=== PATIENT | male | born 1995 | race Caucasian/White ===

== ENCOUNTER 2019-08-04 14:37 | Emergency (ER) | payer SELFPAY ==
[2019-08-04 14:43] VITALS: TEMP 98
[2019-08-04] MEDS ORDERED: KETOROLAC 30 MG/ML 1 ML VIAL IVP STA (15:36)
[2019-08-04] MEDS ORDERED: SODIUM CHLORIDE 0.9% 1,000 ML IV STA (15:36)
[2019-08-04 16:25] LABS: Basophils # (A) 0.1 k/uL (0-0.2); Basophils % (A) 2 %; Eosinophils # (A) 0.1 k/uL (0-0.7); Eosinophils % (A) 2 %; HCT 46.6 % (39.0-53.0); HGB 15.7 gm/dL (13.0-17.5); Lymphocytes # (A) 1.6 k/uL (1.0-4.8); Lymphocytes % (A) 25 %; MCHC 33.8 g/dL (31.0-37.0); MCV 85.9 fL (80.0-100.0); Mean Platelet Volume 6.7; Monocytes # (A) 0.4 k/uL (0-1.0); Monocytes % (A) 6 %; Neutrophils # (A) 4.1 k/uL (1.3-7.7); Neutrophils % (A) 63 %; Platelet Count 334 k/uL (150-450); RBC 5.42 m/uL (4.30-5.90); RDW 12.2 % (11.5-15.5); WBC 6.5 k/uL (3.8-10.6)
--- NOTE | 2019-08-04 16:30 | XR ---
EXAMINATION TYPE: XR chest 2V DATE OF EXAM: 08/04/2019 COMPARISON: None HISTORY: 24-year-old male with cough and pain TECHNIQUE: PA and lateral views FINDINGS: The cardiomediastinal silhouette, aorta, and pulmonary vasculature are within normal limits. There ma y be some mild central peribronchial cuffing. Otherwise, lungs and pleural spaces are clear. IMPRESSION: Some mild central peribronchial cuffing could reflect bronchitis or asthma. Otherwise, no acute cardi opulmonary process.
[2019-08-04 16:32] LABS: ALT 63 U/L (21-72); AST 31 U/L (17-59); African American GFR (CKD) >90 (>60 ml/min/1.73 sqM); Albumin 4.5 g/dL (3.5-5.0); Alkaline Phosphatase 89 U/L (38-126); Anion Gap 9 mmol/L; Blood Urea Nitrogen 14 mg/dL (9-20); Calcium 9.7 mg/dL (8.4-10.2); Carbon Dioxide 25 mmol/L (22-30); Chloride 106 mmol/L (98-107); Glucose 96 mg/dL (74-99); Non-African American GFR(CKD) >90 (>60 ml/min/1.73 sqM); Potassium 4.3 mmol/L (3.5-5.1); Sodium 140 mmol/L (137-145); Total Bilirubin 0.6 mg/dL (0.2-1.3); Total Protein 7.5 g/dL (6.3-8.2)
[2019-08-04 16:36] LABS: D-Dimer <0.17 mg/L FEU (<0.60); INR 0.9 (<1.2); Partial Thromboplastin Time 28.3 sec (22.0-30.0); Prothrombin Time 9.7 sec (9.0-12.0)
--- NOTE | 2019-08-04 17:26 | ED ---
General Adult HPI - General Chief complaint: Shortness of Breath Stated complaint: SOB Time Seen by Provider: 08/04/19 14:40 Source: patient Mode of arrival: ambulatory Limitations: no limitations - History of Present Illness Initial comments: The patient is a 24-year-old male with no past medical history presents emergency Department with reported chest pain. He states that last week he did have an upper respiratory infection which to have a nonproductive cough, nausea and vomiting. States that since his symptoms have resolved however he now suff ers from a pleuritic chest pain over the past 3 days. He states that it is left sided. Denies ripping or tearing sensation to his back. Denies any chest wall trauma. No unilateral numbness or weakness. Denies any fevers or chills. No history of DVT or PE. No lower extremity swelling. He has not taken anything at home for his symptoms. There are no other alleviating, precipitating or modifying factors - Related Data Previous Rx's Medication Instructions Recorded Albuterol Sulfate [Proair Hfa] 1 - 2 puff INHALATION Q4HR PRN #1 08/04/19 inhaler Naproxen [Naprosyn] 500 mg PO Q12HR PRN #20 tab 08/04/19 Allergies Allergy/AdvReac Type Severity Reaction Status Date / Time No Known Allergies Allergy Verified 08/04/19 14:40 Review of Systems ROS Statement: Those systems with pertinent positive or pertinent negative responses have been documented in the HPI. ROS Other: All systems not noted in ROS Statement are negative. Past Medical History Past Medical History: No Reported History History of Any Multi-Drug Resistant Organisms: None Reported Past Surgical History: No Surgical Hx Reported Past Psychological History: No Psychological Hx Reported Smoking Status: Never smoker Past Alcohol Use History: None Reported Past Drug Use History: None Reported General Exam Limitations: no limitations General appearance: alert, in no apparent distress Head exam: Present: atraumatic, normocephalic, normal inspection Eye exam: Present: normal appearance, PERRL, EOMI. Absent: scleral icterus, conjunctival injection, periorbital swelling ENT exam: Present: normal exam, mucous membranes moist Neck exam: Present: normal inspection. Absent: tenderness, meningismus, lymphadenopathy Respiratory exam: Present: normal lung sounds bilaterally. Absent: respiratory distress, wheezes, rales, rhonchi, stridor Cardiovascular Exam: Present: regular rate, normal rhythm, normal heart sounds. Absent: systolic murmur, diastolic murmur, rubs, gallop, clicks GI/Abdominal exam: Present: soft, normal bowel sounds. Absent: distended, tenderness, guarding, rebound, rigid Extremities exam: Present: normal inspection, full ROM, normal capillary refill. Absent: tenderness, pedal edema, joint swelling, calf tenderness Back exam: Present: normal inspection Neurological exam: Present: alert, oriented X3, CN II-XII intact Psychiatric exam: Present: normal affect, normal mood Skin exam: Present: warm, dry, intact, normal color. Absent: rash Course Vital Signs 08/04/19 08/04/19 14:40 17:45 Temperature 98 F Pulse Rate 104 H 96 Respiratory 22 18 Rate Blood Pressure 144/80 139/63 O2 Sat by Pulse 98 99 Oximetry EKG Findings - EKG Comments: EKG Findings:: EKG demonstrates normal sinus rhythm with ventricular rate of 82. PA interval 156. QRS 86. QTC of 425. There are no acute ST segment elevations or depressions concerning for ischemic changes. There is an inverted T-wave in lead 3. Medical Decision Making - Medical Decision Making Upon arrival the patient is placed into room 8 and a thorough history of physical exam was performed. A 12-lead EKG was performed. I did provide the patient with 30 mg of IV Toradol. Laboratory studies were performed she went for chest x-ray. CBC, CMP are unremarkable. Troponin is negative. D-dimer is negative. Chest x-ray demonstrates some mild peribronchial cuffing. I discussed results with the patient. He reports he is pain-free with the Toradol administration. I did discuss diagnosis, differential and treatment options. I did recommend the patient follow up with primary care doctor in 2-4 days. I did recommend a full cardiac workup to include an echo. I will provide the patient with a prescription for an albuterol inhaler and Naprosyn. The patient has any new or worsening symptoms he should return to the emergency room. The patient agreed and was discharged home in stable condition - Lab Data Result diagrams: 08/04/19 15:55 08/04/19 15:55 Lab Results 08/04/19 08/04/19 08/04/19 Range/Units 15:55 15:55 15:55 WBC 6.5 (3.8-10.6) k/uL RBC 5.42 (4.30-5.90) m/uL Hgb 15.7 (13.0-17.5) gm/dL Hct 46.6 (39.0-53.0) % MCV 85.9 (80.0-100.0) fL MCH 29.0 (25.0-35.0) pg MCHC 33.8 (31.0-37.0) g/dL RDW 12.2 (11.5-15.5) % Plt Count 334 (150-450) k/uL Neutrophils % 63 % Lymphocytes % 25 % Monocytes % 6 % Eosinophils % 2 % Basophils % 2 % Neutrophils # 4.1 (1.3-7.7) k/uL Lymphocytes # 1.6 (1.0-4.8) k/uL Monocytes # 0.4 (0-1.0) k/uL Eosinophils # 0.1 (0-0.7) k/uL Basophils # 0.1 (0-0.2) k/uL PT 9.7 (9.0-12.0) sec INR 0.9 (<1.2) APTT 28.3 (22.0-30.0) sec D-Dimer <0.17 (<0.60) mg/L FEU Sodium 140 (137-145) mmol/L Potassium 4.3 (3.5-5.1) mmol/L Chloride 106 (98-107) mmol/L Carbon Dioxide 25 (22-30) mmol/L Anion Gap 9 mmol/L BUN 14 (9-20) mg/dL Creatinine 0.72 (0.66-1.25) mg/dL Est GFR (CKD-EPI)AfAm >90 (>60 ml/min/1.73 sqM) Est GFR (CKD-EPI)NonAf >90 (>60 ml/min/1.73 sqM) Glucose 96 (74-99) mg/dL Calcium 9.7 (8.4-10.2) mg/dL Total Bilirubin 0.6 (0.2-1.3) mg/dL AST 31 (17-59) U/L ALT 63 (21-72) U/L Alkaline Phosphatase 89 (38-126) U/L Troponin I (0.000-0.034) ng/mL Total Protein 7.5 (6.3-8.2) g/dL Albumin 4.5 (3.5-5.0) g/dL Lipase 52 (23-300) U/L TSH 1.780 (0.465-4.680) mIU/L 08/04/19 Range/Units 15:55 WBC (3.8-10.6) k/uL RBC (4.30-5.90) m/uL Hgb (13.0-17.5) gm/dL Hct (39.0-53.0) % MCV (80.0-100.0) fL MCH (25.0-35.0) pg MCHC (31.0-37.0) g/dL RDW (11.5-15.5) % Plt Count (150-450) k/uL Neutrophils % % Lymphocytes % % Monocytes % % Eosinophils % % Basophils % % Neutrophils # (1.3-7.7) k/uL Lymphocytes # (1.0-4.8) k/uL Monocytes # (0-1.0) k/uL Eosinophils # (0-0.7) k/uL Basophils # (0-0.2) k/uL PT (9.0-12.0) sec INR (<1.2) APTT (22.0-30.0) sec D-Dimer (<0.60) mg/L FEU Sodium (137-145) mmol/L Potassium (3.5-5.1) mmol/L Chloride (98-107) mmol/L Carbon Dioxide (22-30) mmol/L Anion Gap mmol/L BUN (9-20) mg/dL Creatinine (0.66-1.25) mg/dL Est GFR (CKD-EPI)AfAm (>60 ml/min/1.73 sqM) Est GFR (CKD-EPI)NonAf (>60 ml/min/1.73 sqM) Glucose (74-99) mg/dL Calcium (8.4-10.2) mg/dL Total Bilirubin (0.2-1.3) mg/dL AST (17-59) U/L ALT (21-72) U/L Alkaline Phosphatase (38-126) U/L Troponin I <0.012 (0.000-0.034) ng/mL Total Protein (6.3-8.2) g/dL Albumin (3.5-5.0) g/dL Lipase (23-300) U/L TSH (0.465-4.680) mIU/L Disposition Clinical Impression: Pleurisy Disposition: HOME SELF-CARE Condition: Stable Instructions (If sedation given, give patient instructions): Pleurisy (ED) Additional Instructions: Please follow-up with your primary care doctor in 2-4 days. Return to the emergency room for any new or worsening symptoms Prescriptions: Naproxen [Naprosyn] 500 mg PO Q12HR PRN #20 tab PRN Reason: Pain Albuterol Sulfate [Proair Hfa] 1 - 2 puff INHALATION Q4HR PRN #1 inhaler PRN Reason: difficulty in breathing Is patient prescribed a controlled substance at d/c from ED?: No Referrals: None,Stated [Primary Care Provider] - 1-2 days Time of Disposition: 17:26
[2019-08-04 17:46] VITALS: BP 139/63; PULSE 96; RESP 18
== END 2019-08-04 17:50 | disposition home or self-care (01) ==
LOC: EC 14:37
DX: R09.1 Pleurisy (principal); R91.8 Other nonspecific abnormal finding of lung field
CPT/HCPCS: 99285 ×2; 96374 ×2; 96361 ×2; 36415; 93005; 85379; 80053; 84443; 83690; 84484; 85025; 85610; 85730; 71046; J1885

== ENCOUNTER → 2023-07-10 | Outpatient (CLI) | payer OTHER ==
--- NOTE | 2023-07-10 07:19 | XR ---
EXAMINATION TYPE: XR finger RT DATE OF EXAM: 07/10/2023 6:55 AM INDICATION: Patient age:Male; 28 years old; Reason for study: [id number] FINGER PAIN RIGHT; [facility]. COMPARISON: None TECHNIQUE: Frontal, lateral and oblique views of the right hand were obtained. FINDINGS: Normal alignment of the visualized joints. No osseous erosions. No acute osseous pathology is identified. No evidence of soft tissue swelling. No radiopaque foreign body. IMPRESSION: No acute osseous pathology.
== END | disposition home or self-care (01) ==
LOC: RADXRMAIN 06:36
PROVIDERS: ATTEND Family Medicine
DX: M79.644 Pain in right finger(s) (principal)